=== PATIENT | male | born 1940 | race Caucasian/White ===

== ENCOUNTER → 2017-05-19 | Outpatient (CLI) | payer OTHER, BC ==
[2017-05-19 09:21] LABS: microscopic required? NO
[2017-05-19 09:34] LABS: PLATELET COUNT 155 x10^3mcL (130-400); RED CELL DISTRIBUTION WIDTH 14.2 % (11.5-14.5)
[2017-05-19 09:38] LABS: BASOPHIL % 3.8 % (0-2)
[2017-05-19 09:49] LABS: ALBUMIN 3.6 g/dL (3.4-5.0); ALKALINE PHOSPHATASE 59 U/L (46-116); ALT/SGPT 32 U/L (16-63); AST/SGOT 29 U/L (15-37); BILIRUBIN DIRECT 0.26 mg/dL (0.0-0.2); BILIRUBIN TOTAL 1.36 mg/dL (0.20-1.00); CALCIUM 9.8 mg/dL (8.5-10.1); CARBON DIOXIDE 30.2 mmol/L (21-32); CHLORIDE SERUM 104 mmol/L (98-107); CHOLESTEROL 190 mg/dL (<200); CHOLESTEROL/HDL RATIO 3.7; CREATININE SERUM 1.1 mg/dL (0.7-1.3); FREE T4 1.07 ng/dL (0.76-1.46); GLUCOSE SERUM 108 mg/dL (74-106); HDL CHOLESTEROL 51 mg/dL (40-60); POTASSIUM SERUM 4.4 mmol/L (3.5-5.1); SODIUM SERUM 141 mmol/L (136-145); TOTAL PROTEIN, SERUM 8.5 g/dL (6.4-8.2); TRIGLYCERIDES 79 mg/dL (<150)
[2017-05-19 10:54] LABS: UA SPECIFIC GRAVITY 1.015 (1.005-1.035); urine erythrocyte NEGATIVE (NEGATIVE)
== END | disposition home or self-care (01) ==
LOC: LB 08:40
PROVIDERS: Internal Medicine Interventional Cardiology
DX: I48.91 Unspecified atrial fibrillation (principal)
CPT/HCPCS: 84439

== ENCOUNTER 2019-01-09 15:22 | Emergency (ER) | payer OTHER, BC ==
[~2019-01-09] VITALS: Ht 188 cm; Wt 112.0 kg
[2019-01-09 15:27] VITALS: Ht 188 cm; Wt 112.0 kg
[2019-01-09 17:24] VITALS: BP 101/55
== END 2019-01-09 17:24 | disposition home or self-care (01) ==
LOC: ED 15:22
DX: S00.81XA Abrasion of other part of head, initial encounter (principal); Z98.890 Other specified postprocedural states; Z85.46 Personal history of malignant neoplasm of prostate; V43.52XA Car driver injured in collision with other type car in traffic accident, initial encounter; Y93.I9 Activity, other involving external motion; Y92.488 Other paved roadways as the place of occurrence of the external cause; Y99.8 Other external cause status
CPT/HCPCS: 36415